=== PATIENT | female | born 1960 | race Hispanic/Latino ===

== ENCOUNTER 2017-12-30 21:02 | Emergency (ER) | payer OTHER ==
[2017-12-30 21:02] VITALS: BMI 23.8
[2017-12-30 21:14] VITALS: BP 168/91; PULSE 104; RESP 18; TEMP 98.5; O2SAT 96
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
== END 2017-12-30 21:45 | disposition left against medical advice (07) ==
LOC: ED 21:02
DX: S09.90XA Unspecified injury of head, initial encounter (principal); W03.XXXA Other fall on same level due to collision with another person, initial encounter; Y92.9 Unspecified place or not applicable